=== PATIENT | male | born 1960 | race African-American/Black ===

== ENCOUNTER 2018-04-22 19:04 | Inpatient (IN) | payer MEDICARE, MEDICAID ==
[~2018-04-22] VITALS: Ht 188 cm; Wt 90.7 kg
[2018-04-22] MEDS ORDERED: KETOROLAC 30MG/ML VIAL IV STA (19:37)
[2018-04-22] MEDS ORDERED: MORPHINE SULFATE 4 MG/ML CPJ (NOT FOR IM USE) IV STA (19:37)
[2018-04-22] MEDS ORDERED: ONDANSETRON HCL 4MG/2ML INJ IV STA (19:37)
[2018-04-22] MEDS ORDERED: SODIUM CHLORIDE 0.9% 1,000 ML IV ONE (19:37)
[2018-04-22] MEDS ORDERED: FAMOTIDINE 20MG/2ML VIAL IV ONE (19:45)
[2018-04-22 20:27] LABS: BASOPHILS % 1.1 % (0.0-2.0); EOSINOPHILS % 5.4 % (0.0-5.0); HEMATOCRIT. 43.2 % (42.0-52.0); HEMOGLOBIN. 14.5 g/dL (14.0-18.0); LYMPHOCYTES % 28.8 % (20.0-50.0); MEAN CORPUSCULAR HEMOGLOBIN 30.1 pg (28.0-32.0); MEAN CORPUSCULAR VOLUME 89.9 fL (80.0-94.0); MEAN PLATELET VOLUME 8.2 fl (7.4-10.4); MONOCYTES % 10.1 % (2.0-8.0); NEUTROPHILS % 54.6 % (40.0-76.0); PLATELET 280 x1000/uL (130-400); RED BLOOD CELL COUNT 4.81 mill/uL (4.7-6.1); RED CELL DISTRIBUTION WIDTH 15.7 % (11.6-14.6)
[2018-04-22 20:30] LABS: CHLORIDE 107 mEq/L (98-107)
[2018-04-22 20:34] LABS: ETHANOL BLOOD 234 mg/dL; PARTIAL THROMBOPLASTIN TIME 23.1 sec (23.4-31.0); PROTHROMBIN TIME 9.9 sec (9.1-11.1)
[2018-04-22] MEDS ORDERED: ONDANSETRON HCL 4MG/2ML INJ IV ONE (22:45)
[2018-04-22] MEDS ORDERED: MORPHINE SULFATE 4 MG/ML CPJ (NOT FOR IM USE) IV ONE (22:45)
[2018-04-23] VITALS (7 sets, daily range): BP systolic 134–160; BP diastolic 68–84
[2018-04-23] MEDS: HYDROCODONE/ACETAMINOPHEN 10/325MG TABLET PO PRN ×4 (01:38→21:42)
[2018-04-23] MEDS: ONDANSETRON HCL 4MG/2ML INJ IV PRN (01:46)
[2018-04-23] MEDS ORDERED: DOXY150T MT (02:40)
[2018-04-23] MEDS ORDERED: ALPR0.25 MT (02:40)
[2018-04-23] MEDS ORDERED: GABA100C MT (02:40)
[2018-04-23] MEDS ORDERED: OXYC-105 MT (02:40)
[2018-04-23] MEDS: PANTOPRAZOLE 40MG DR TABLET PO SCH (06:44)
[2018-04-23] MEDS: MULTIVITAMINS,THER W-MINERALS TABLET PO SCH (08:45)
[2018-04-23] MEDS: FOLIC ACID 1MG TABLET PO SCH (08:45)
[2018-04-23] MEDS: THIAMINE HCL 100MG TABLET PO SCH (08:45)
[2018-04-23 09:14] LABS: HEMATOCRIT. 36.4 % (42.0-52.0); HEMOGLOBIN. 12.2 g/dL (14.0-18.0); MEAN CORPUSCULAR VOLUME 89.7 fL (80.0-94.0); MEAN PLATELET VOLUME 7.9 fl (7.4-10.4); PLATELET 217 x1000/uL (130-400); RED BLOOD CELL COUNT 4.05 mill/uL (4.7-6.1); RED CELL DISTRIBUTION WIDTH 15.6 % (11.6-14.6)
[2018-04-23 09:43] LABS: CHLORIDE 104 mEq/L (98-107)
[2018-04-23 09:48] LABS: PLATELET ESTIMATE NORMAL
[2018-04-23] MEDS ORDERED: POTASSIUM CHLORIDE 20MEQ TABLET SR PO SCH (11:15)
[2018-04-23] MEDS: AMLODIPINE 5MG TABLET PO SCH ×2 (12:12→21:42)
[2018-04-23] MEDS: CHLORDIAZEPOXIDE 25MG CAPSULE PO SCH ×2 (13:04→21:42)
[2018-04-23 14:01] LABS: CLARITY URINE CLOUDY (CLEAR); COLOR URINE YELLOW (YELLOW); KETONES URINE 2+ (NEGATIVE); LEUKOCYTE ESTERASE URINE 1+ (NEGATIVE); NITRITE URINE NEGATIVE (NEGATIVE); OCCULT BLOOD URINE TRACE (NEGATIVE); PH URINE 6.5 (4.5-8.0); PROTEIN URINE NEGATIVE (NEGATIVE); SPECIFIC GRAVITY URINE 1.016 (1.005-1.030)
[2018-04-23 14:14] LABS: *AMPHETAMINES SCREEN URINE NEGATIVE (NEGATIVE); *BARBITURATES SCREEN URINE NEGATIVE (NEGATIVE); *BENZODIAZEPINES SCREEN URINE PRESUMTIVE POSITIVE (NEGATIVE); *COCAINE SCREEN URINE NEGATIVE (NEGATIVE)
[2018-04-23 14:15] LABS: CANNABINOID URINE SCREEN NEGATIVE (NEGATIVE); METHADONE URINE SCREEN NEGATIVE (NEGATIVE); OPIATES URINE SCREEN PRESUMTIVE POSITIVE (NEGATIVE); PHENCYCLIDINE URINE SCREEN NEGATIVE (NEGATIVE)
[2018-04-23 19:28] LABS: HEPATITIS B SURFACE ANTIGEN NEGATIVE
[2018-04-23 19:58] LABS: HEPATITIS A AB IGM NEGATIVE (NEGATIVE)
[2018-04-24] VITALS: BP 153/55
[2018-04-24] MEDS: HYDROCODONE/ACETAMINOPHEN 10/325MG TABLET PO PRN ×4 (01:42→21:01)
[2018-04-24 04:00] VITALS: BP 141/65
[2018-04-24] MEDS: CHLORDIAZEPOXIDE 25MG CAPSULE PO SCH ×3 (06:21→22:00)
[2018-04-24] MEDS: PANTOPRAZOLE 40MG DR TABLET PO SCH (06:21)
[2018-04-24 08:00] VITALS: BP 116/73
[2018-04-24] MEDS: MULTIVITAMINS,THER W-MINERALS TABLET PO SCH (09:21)
[2018-04-24] MEDS: FOLIC ACID 1MG TABLET PO SCH (09:21)
[2018-04-24] MEDS: THIAMINE HCL 100MG TABLET PO SCH (09:22)
[2018-04-24] MEDS: AMLODIPINE 5MG TABLET PO SCH ×2 (09:22→20:53)
[2018-04-24 09:43] LABS: HEMATOCRIT. 37.8 % (42.0-52.0); HEMOGLOBIN. 12.5 g/dL (14.0-18.0); MEAN CORPUSCULAR HEMOGLOBIN 30.1 pg (28.0-32.0); MEAN CORPUSCULAR VOLUME 90.6 fL (80.0-94.0); MEAN PLATELET VOLUME 8.5 fl (7.4-10.4); PLATELET 216 x1000/uL (130-400); RED BLOOD CELL COUNT 4.17 mill/uL (4.7-6.1); RED CELL DISTRIBUTION WIDTH 15.6 % (11.6-14.6)
[2018-04-24 11:33] LABS: CHLORIDE 105 mEq/L (98-107)
[2018-04-24 12:00] VITALS: BP 145/75
[2018-04-24 16:00] VITALS: BP 132/56
[2018-04-24 18:02] LABS: PLATELET ESTIMATE NORMAL
[2018-04-24 20:00] VITALS: BP 146/90
[2018-04-25] VITALS: BP 140/75
[2018-04-25 04:00] VITALS: BP 151/81
[2018-04-25] MEDS: CHLORDIAZEPOXIDE 25MG CAPSULE PO SCH ×2 (06:00→14:43)
[2018-04-25] MEDS: PANTOPRAZOLE 40MG DR TABLET PO SCH (06:30)
[2018-04-25] MEDS: HYDROCODONE/ACETAMINOPHEN 10/325MG TABLET PO PRN ×3 (06:31→21:39)
[2018-04-25 08:00] VITALS: BP 139/72
[2018-04-25 08:03] LABS: BASOPHILS % 0.3 % (0.0-2.0); EOSINOPHILS % 4.2 % (0.0-5.0); HEMATOCRIT. 38.2 % (42.0-52.0); HEMOGLOBIN. 12.4 g/dL (14.0-18.0); LYMPHOCYTES % 23.5 % (20.0-50.0); MEAN CORPUSCULAR HEMOGLOBIN 30.2 pg (28.0-32.0); MEAN CORPUSCULAR VOLUME 92.5 fL (80.0-94.0); MEAN PLATELET VOLUME 8.3 fl (7.4-10.4); MONOCYTES % 10.4 % (2.0-8.0); NEUTROPHILS % 61.6 % (40.0-76.0); PLATELET 193 x1000/uL (130-400); RED BLOOD CELL COUNT 4.13 mill/uL (4.7-6.1); RED CELL DISTRIBUTION WIDTH 15.7 % (11.6-14.6)
[2018-04-25 08:05] LABS: CHLORIDE 106 mEq/L (98-107)
[2018-04-25] MEDS: FOLIC ACID 1MG TABLET PO SCH (08:46)
[2018-04-25] MEDS: MULTIVITAMINS,THER W-MINERALS TABLET PO SCH (08:46)
[2018-04-25] MEDS: THIAMINE HCL 100MG TABLET PO SCH (08:46)
[2018-04-25] MEDS: AMLODIPINE 5MG TABLET PO SCH ×2 (08:46→21:38)
[2018-04-25 12:00] VITALS: BP 157/93
[2018-04-25] MEDS ORDERED: CARISOPRODOL 350 MG TABLET PO PRN (15:45)
[2018-04-25 16:00] VITALS: BP 146/81
[2018-04-25] MEDS: DEXAMETHASONE 4MG/ML 1ML VIAL IV SCH (17:28)
[2018-04-25 20:00] VITALS: BP 137/76
[2018-04-26] VITALS: BP 151/73
[2018-04-26] MEDS: DEXAMETHASONE 4MG/ML 1ML VIAL IV SCH ×4 (00:12→17:15)
[2018-04-26] MEDS: CHLORDIAZEPOXIDE 25MG CAPSULE PO SCH ×4 (00:34→22:11)
[2018-04-26 04:00] VITALS: BP 147/95
[2018-04-26] MEDS: PANTOPRAZOLE 40MG DR TABLET PO SCH (06:33)
[2018-04-26 08:00] VITALS: BP 136/83
[2018-04-26] MEDS: THIAMINE HCL 100MG TABLET PO SCH (08:30)
[2018-04-26] MEDS: AMLODIPINE 5MG TABLET PO SCH ×2 (08:30→20:33)
[2018-04-26] MEDS: FOLIC ACID 1MG TABLET PO SCH (08:30)
[2018-04-26] MEDS: MULTIVITAMINS,THER W-MINERALS TABLET PO SCH (08:30)
[2018-04-26] MEDS: ONDANSETRON HCL 4MG/2ML INJ IV PRN (11:26)
[2018-04-26] MEDS: HYDROCODONE/ACETAMINOPHEN 10/325MG TABLET PO PRN ×2 (11:28→22:16)
[2018-04-26 12:00] VITALS: BP 144/87
[2018-04-26 16:00] VITALS: BP 118/86
[2018-04-26 20:00] VITALS: BP 134/76
[2018-04-26] MEDS ORDERED: MAGNESIUM/ALUMINUM HYDROXIDE/SIMETHICONE 30ML UDC PO PRN (20:00)
[2018-04-26] MEDS ORDERED: DOCUSATE SODIUM 250MG CAPSULE PO PRN (20:00)
[2018-04-27] VITALS: BP 109/71
[2018-04-27] MEDS: DEXAMETHASONE 4MG/ML 1ML VIAL IV SCH ×2 (00:09→06:41)
[2018-04-27 04:00] VITALS: BP 131/86
[2018-04-27] MEDS: PANTOPRAZOLE 40MG DR TABLET PO SCH (06:41)
[2018-04-27] MEDS: CHLORDIAZEPOXIDE 25MG CAPSULE PO SCH (06:41)
[2018-04-27] MEDS: HYDROCODONE/ACETAMINOPHEN 10/325MG TABLET PO PRN (06:57)
[2018-04-27 08:00] VITALS: BP 147/82
[2018-04-27] MEDS: AMLODIPINE 5MG TABLET PO SCH (09:07)
[2018-04-27] MEDS: THIAMINE HCL 100MG TABLET PO SCH (09:07)
[2018-04-27] MEDS: FOLIC ACID 1MG TABLET PO SCH (09:07)
[2018-04-27] MEDS: MULTIVITAMINS,THER W-MINERALS TABLET PO SCH (09:07)
== END 2018-04-27 11:10 | disposition left against medical advice (07) | DRG 92 ==
LOC: ER 19:04 → 6EST 22:47 → EDBEDREQ 22:57 → EDBEDREQSVC 22:57 → EDBEDREQTM 22:57 → ENRESERV 23:02
PROVIDERS: ADMIT Internal Medicine; ATTEND Internal Medicine
DX: G95.20 Unspecified cord compression (principal); E87.0 Hyperosmolality and hypernatremia; J98.11 Atelectasis; M47.12 Other spondylosis with myelopathy, cervical region; M48.02 Spinal stenosis, cervical region; K52.9 Noninfective gastroenteritis and colitis, unspecified; F10.10 Alcohol abuse, uncomplicated; B19.20 Unspecified viral hepatitis C without hepatic coma; F17.210 Nicotine dependence, cigarettes, uncomplicated; I10 Essential (primary) hypertension; K76.0 Fatty (change of) liver, not elsewhere classified; K80.20 Calculus of gallbladder without cholecystitis without obstruction; Y90.7 Blood alcohol level of 200-239 mg/100 ml; Z53.21 Procedure and treatment not carried out due to patient leaving prior to being seen by health care provider; Z98.1 Arthrodesis status; Z91.81 History of falling
CPT/HCPCS: 36415; 70551; 71045; 72141; 72146; 73030; 74176; 80048; 80076; 80305; 82248; 83880; 84484; 86705; 86709; 86803; 87340; 93005; 96361; 96374; 96375; 96376; 97162; 99285; G0482; J1100; J1885; J2270; J2405; J3490; J7030